=== PATIENT | female | born 1940 | race Caucasian/White ===

== ENCOUNTER → 2017-03-14 | Outpatient (CLI) | payer OTHER ==
--- NOTE | 2017-03-14 12:49 | PCVCIMAG ---
APPROVED REPORT Study performed: 03/14/2017 10:02:59 EXAM: Comprehensive 2D, Doppler, and color-flow Echocardiogram Patient Location: Echo lab Status: routine Other Information Study Quality: Adequate Risk Factors: Cardiac Risk Factors: HTN, Hyperlipidemia Indications Aortic Stenosis 2D Dimensions LVEF(%): 66.98 (>50%) IVSd: 12.58 (7-11mm)LVOT Diam: 18.98 (18-24mm) LVDd: 35.94 mm PWd: 13.15 (7-11mm)Ascending Ao: 30.98 (22-36mm) LVDs: 22.88 (25-40mm) Left Atrium: 38.04 (27-40mm) Aortic Root: 30.28 mm LV Single Plane 4CH: 60.11 % LV Single Plane 2CH: 53.52 %Roque's LVEF: 56.81 % Biplane EF: 57.6 % Volumes Left Atrial Volume (Systole) Single Plane 4CH: 44.24 mLSingle Plane 2CH: 61.37 mL LA ESV Index: 34.00 mL/m2 Aortic Valve AoV Peak Glenn.: 3.82 m/s AO Peak Gr.: 58.45 mmHgLVOT Max P.71 mmHg AO Mean Gr.: 30.68 mmHgLVOT Mean P.36 mmHg AO V2 Mean: 2.64 m/sLVOT Max V: 1.08 m/s AO V2 VTI: 96.71 cm SHILO (VTI): 0.74 [id number] V1 VTI: 25.43 cm SHILO Vmax: 0.80 cm2 Mitral Valve E/A Ratio: 0.9 MV Decel. Time: 254.96 ms MV E Max Glenn.: 1.01 m/s MV A Glenn.: 1.16 m/s MV PHT: 73.94 ms IVRT: 103.81 ms Pulmonary Valve PV Peak Glenn.: 0.87 m/sPV Peak Gr.: 3.06 mmHg Pulmonary Vein P Vein S: 0.31 m/sP Vein A: 0.30 m/s P Vein D: 0.45 m/sP Vein A Dur.: 134.9 msec P Vein S/D Ratio: 0.69 Tricuspid Valve TR Peak Glenn.: 2.20 m/s TR Peak Gr.: 19.40 mmHg Left Ventricle The left ventricle is normal size. There is normal LV segmental wall motion. Mild concentric left ventricular hypertrophy. Left ventricular systolic function is normal. The left ventricular ejection fraction is within the normal range. LVEF is 55-60%. Grade I - abnormal relaxation pattern. Right Ventricle The right ventricle is normal size. The right ventricular systolic function is normal. Atria The left atrium size is normal. The right atrium size is normal. Aortic Valve The aortic valve is moderately to severely calcified. The aortic valve is trileaflet. Trace aortic regurgitation. There is moderate to severe valvular aortic stenosis. Calculated aortic valve area is 0.8 cm2 with maximum pressure gradient of 58 mmHg and mean pressure gradient of 31 mmHg. Mitral Valve The mitral valve is normal in structure. Trace mitral regurgitation. No evidence of mitral valve stenosis. Tricuspid Valve The tricuspid valve is normal in structure. Trace to mild tricuspid regurgitation with PAP of 26 mmHg. Pulmonic Valve The pulmonary valve is normal in structure. There is no pulmonic valvular regurgitation. Great Vessels The aortic root is normal in size. IVC is normal in size and collapses with >50% inspiration Pericardium There is no pericardial effusion. <Conclusion> The left ventricle is normal size. Mild concentric left ventricular hypertrophy. Left ventricular systolic function is normal. The right ventricle is normal size. The left atrium size is normal. There is moderate to severe valvular aortic stenosis. Calculated aortic valve area is 0.8 cm2 with maximum pressure gradient of 58 mmHg and mean pressure gradient of 31 mmHg. Trace mitral regurgitation. Trace to mild tricuspid regurgitation with PAP of 26 mmHg.
== END | disposition home or self-care (01) ==
LOC: PCVCIMAG 09:57
PROVIDERS: ATTEND Internal Medicine Cardiovascular Disease
DX: I10 Essential (primary) hypertension (principal); E78.5 Hyperlipidemia, unspecified; I08.3 Combined rheumatic disorders of mitral, aortic and tricuspid valves; E78.00 Pure hypercholesterolemia, unspecified
CPT/HCPCS: 93306

== ENCOUNTER → 2017-05-05 | Outpatient (CLI) | payer OTHER | END | disposition home or self-care (01) | LOC: PCVCCLINIC 14:10 | PROVIDERS: ATTEND Internal Medicine Cardiovascular Disease | DX: I35.0 Nonrheumatic aortic (valve) stenosis (principal); I10 Essential (primary) hypertension; E78.00 Pure hypercholesterolemia, unspecified; Z79.82 Long term (current) use of aspirin | CPT/HCPCS: 93005; G0463 ==

== ENCOUNTER → 2017-11-03 | Outpatient (CLI) | payer OTHER | END | disposition home or self-care (01) | LOC: PCVCIMAG 08:40 | DX: I08.2 Rheumatic disorders of both aortic and tricuspid valves (principal); I10 Essential (primary) hypertension; E78.00 Pure hypercholesterolemia, unspecified; R94.31 Abnormal electrocardiogram [ECG] [EKG]; Z79.82 Long term (current) use of aspirin | CPT/HCPCS: 93005; 93306; G0463 ==

== ENCOUNTER → 2018-05-08 | Outpatient (CLI) | payer OTHER ==
--- NOTE | 2018-05-08 10:40 | PCVCIMAG ---
APPROVED REPORT Study performed: 05/08/2018 09:09:30 EXAM: Comprehensive 2D, Doppler, and color-flow Echocardiogram Patient Location: Echo lab Status: routine BSA: 1.62 HR: 74 bpmBP: 140/70 mmHg Rhythm: NSR Other Information Study Quality: Good Risk Factors: Cardiac Risk Factors: HTN, Hyperlipidemia Indications Aortic Stenosis 2D Dimensions LVEF(%): 71.86 (>50%) IVSd: 13.80 (7-11mm)LVOT Diam: 19.63 (18-24mm) LVDd: 33.26 mm PWd: 11.19 (7-11mm)Ascending Ao: 30.58 (22-36mm) LVDs: 19.95 (25-40mm) Left Atrium: 37.61 (27-40mm) Aortic Root: 24.41 mm LV Single Plane 4CH: 64.94 % LV Single Plane 2CH: 56.46 %Roque's LVEF: 60.70 % Biplane EF: 60.1 % Volumes Left Atrial Volume (Systole) Single Plane 4CH: 55.54 mLSingle Plane 2CH: 45.55 mL LA ESV Index: 35.00 mL/m2 Aortic Valve AoV Peak Glenn.: 4.16 m/s AO Peak Gr.: 69.28 mmHgLVOT Max P.02 mmHg AO Mean Gr.: 38.69 mmHgLVOT Mean P.08 mmHg AO V2 Mean: 2.95 m/sLVOT Max V: 1.12 m/s AO V2 VTI: 92.68 cmLVOT Mean V: 0.83 m/s SHILO (VTI): 0.94 [id number] V1 VTI: 28.69 cm SHILO Vmax: 0.81 cm2 SV (LVOT): 86.80 mL Mitral Valve MV Peak Gr.: 9.79 mmHg MV Mean Gr.: 4.05 mmHgE/A Ratio: 1.0 MV Decel. Time: 202.76 ms MV E Max Glenn.: 1.35 m/s MV A Glenn.: 1.41 m/s MV Max Glenn.: 1.56 m/s MV Mean Glenn.: 0.95 m/s MV VTI: 378.02 mm MVA VTI: 229.62 mm2 TDI E/Lateral E': 19.29E/Medial E': 22.50 Medial E' Glenn.: 0.06 m/s Lateral E' Glenn.: 0.07 m/s Pulmonary Valve PV Peak Gr.: 3.01 mmHg Pulmonary Vein P Vein S: 0.62 m/sP Vein A: 0.26 m/s P Vein D: 0.30 m/sP Vein A Dur.: 76.1 msec P Vein S/D Ratio: 2.07 Tricuspid Valve TR Peak Glenn.: 2.90 m/s TR Peak Gr.: 33.74 mmHg Left Ventricle The left ventricle is normal size. There is normal LV segmental wall motion. Mild concentric left ventricular hypertrophy. Left ventricular systolic function is normal. The left ventricular ejection fraction is within the normal range. LVEF is 60-65%. Grade I - abnormal relaxation pattern. Right Ventricle The right ventricle is normal size. The right ventricular systolic function is normal. Atria Left atrium is mildly dilated. The right atrium size is normal. Aortic Valve Aortic valve leaflets are moderately thickened. No aortic regurgitation is present. Severe aortic stenosis. Aortic Valve Area is 0.8cm2. Peak gradient is 69mmhg. Mean gradient is 39mmhg. Mitral Valve Moderate mitral annular calcification. There is no mitral valve regurgitation noted. No evidence of mitral valve stenosis. Tricuspid Valve The tricuspid valve is normal in structure. Trace tricuspid regurgitation. Pulmonary artery ppressure is 41mmhg. Pulmonic Valve The pulmonary valve is normal in structure. There is no pulmonic valvular regurgitation. Great Vessels The aortic root is normal in size. IVC is normal in size and collapses with >50% inspiration Pericardium There is no pericardial effusion. <Conclusion> The left ventricle is normal size. Mild concentric left ventricular hypertrophy. Left ventricular systolic function is normal. Grade I - abnormal relaxation pattern. The right ventricle is normal size. Left atrium is mildly dilated. Severe aortic stenosis. Aortic Valve Area is 0.8cm2. Peak gradient is 69mmhg. Mean gradient is 39mmhg. Moderate mitral annular calcification. There is no mitral valve regurgitation noted.
== END | disposition home or self-care (01) ==
LOC: PCVCIMAG 10:42
PROVIDERS: ATTEND Internal Medicine Cardiovascular Disease
DX: I10 Essential (primary) hypertension (principal); E78.5 Hyperlipidemia, unspecified; I35.0 Nonrheumatic aortic (valve) stenosis
CPT/HCPCS: 93306

== ENCOUNTER → 2018-11-14 | Outpatient (CLI) | payer OTHER ==
--- NOTE | 2018-11-14 11:52 | PCVCIMAG ---
APPROVED REPORT Study performed: 11/14/2018 08:47:09 EXAM: Comprehensive 2D, Doppler, and color-flow Echocardiogram Patient Location: Echo lab Status: routine BSA: 1.62 HR: 67 bpmBP: 148/72 mmHg Rhythm: NSR Other Information Study Quality: Good Risk Factors: Cardiac Risk Factors: Hyperlipidemia, HTN Indications Aortic Valve Disease Syncope Aortic Stenosis 2D Dimensions IVSd: 12.18 (7-11mm)LVOT Diam: 19.90 (18-24mm) LVDd: 30.65 mm PWd: 13.43 (7-11mm)Ascending Ao: 28.93 (22-36mm) LVDs: 19.18 (25-40mm) Left Atrium: 33.46 (27-40mm) Aortic Root: 27.92 mm LV Single Plane 4CH: 68.42 % LV Single Plane 2CH: 74.92 % Biplane EF: 72.8 % Volumes Left Atrial Volume (Systole) Single Plane 4CH: 67.07 mLSingle Plane 2CH: 48.65 mL Biplane LA Volume: 58.00 mLLA ESV Index: 36.00 mL/m2 Aortic Valve AoV Peak Glenn.: 3.96 m/s AO Peak Gr.: 64.04 mmHgLVOT Max P.46 mmHg AO Mean Gr.: 37.85 mmHgLVOT Mean P.08 mmHg AO V2 Mean: 2.80 m/sLVOT Max V: 1.05 m/s AO V2 VTI: 94.32 cmLVOT Mean V: 0.85 m/s SHILO (VTI): 0.93 [id number] V1 VTI: 28.35 cm SHILO Vmax: 0.82 cm2 SV (LVOT): 88.10 mL Mitral Valve E/A Ratio: 0.8 MV Decel. Time: 255.90 ms MV E Max Glenn.: 1.04 m/s MV A Glenn.: 1.28 m/s IVRT: 58.82 ms TDI E/Lateral E': 14.86E/Medial E': 17.33 Medial E' Glenn.: 0.06 m/s Lateral E' Glenn.: 0.07 m/s Pulmonary Valve PV Peak Glenn.: 0.90 m/sPV Peak Gr.: 3.28 mmHg Pulmonary Vein P Vein S: 0.56 m/sP Vein A: 0.27 m/s P Vein D: 0.28 m/sP Vein A Dur.: 79.6 msec P Vein S/D Ratio: 2.00 Tricuspid Valve TR Peak Glenn.: 2.69 m/s TR Peak Gr.: 29.01 mmHg TV Vmax: 0.86 m/sPA Pressure: 36.00 mmHg Left Ventricle The left ventricle is normal size. There is normal LV segmental wall motion. Mild concentric left ventricular hypertrophy. Left ventricular systolic function is normal. The left ventricular ejection fraction is within the normal range. LVEF is 65-70%. Grade I - abnormal relaxation pattern. Right Ventricle The right ventricle is normal size. The right ventricular systolic function is normal. Atria Left atrium is mildly dilated. Right atrium is mildly dilated. Aortic Valve Aortic valve is calcified. No aortic regurgitation is present. Moderately severe aortic stenosis. Highest mean aortic valve gradient is -35 mmHg. Mitral Valve Mild mitral annular calcification. The mitral valve is mildly thickened but opens well. Mild mitral regurgitation. No evidence of mitral valve stenosis. Tricuspid Valve The tricuspid valve is normal in structure. Mild tricuspid regurgitation with a PA pressure of 36 mmHg. Pulmonic Valve The pulmonary valve is normal in structure. Trace pulmonic regurgitation. Great Vessels The aortic root is normal in size. The ascending aorta is normal in size. Aortic arch is normal in caliber. IVC is normal in size and collapses >50% with inspiration. Pericardium There is no pericardial effusion. There is no pleural effusion. <Conclusion> The left ventricle is normal size. Mild concentric left ventricular hypertrophy. Left ventricular systolic function is normal. Grade I - abnormal relaxation pattern. The right ventricle is normal size. Left atrium is mildly dilated. Right atrium is mildly dilated. Moderately severe aortic stenosis. Mild mitral annular calcification. Mild mitral regurgitation. Mild tricuspid regurgitation with a PA pressure of 36 mmHg.
== END | disposition home or self-care (01) ==
LOC: PCVCIMAG 13:10
PROVIDERS: ATTEND Internal Medicine Cardiovascular Disease
DX: I08.3 Combined rheumatic disorders of mitral, aortic and tricuspid valves (principal); I11.9 Hypertensive heart disease without heart failure; R55 Syncope and collapse
CPT/HCPCS: 93306

== ENCOUNTER → 2019-05-22 | Outpatient (CLI) | payer OTHER ==
--- NOTE | 2019-05-23 09:43 | PCVCIMAG ---
APPROVED REPORT Study performed: 05/22/2019 13:26:02 EXAM: Comprehensive 2D, Doppler, and color-flow Echocardiogram Patient Location: Echo lab Room #: 2Status: routine BSA: 1.62 HR: 76 bpmBP: 140/68 mmHg Rhythm: NSR Other Information Study Quality: Good Risk Factors: Cardiac Risk Factors: HTN, Hyperlipidemia Indications Aortic Valve Disease CAD Hypertension/HDD 2D Dimensions IVSd: 11.00 (7-11mm)LVOT Diam: 20.09 (18-24mm) LVDd: 32.19 mm PWd: 11.00 (7-11mm)Ascending Ao: 30.17 (22-36mm) LVDs: 15.96 (25-40mm) Left Atrium: 38.07 (27-40mm) Aortic Root: 21.04 mm LV Single Plane 4CH: 54.61 % LV Single Plane 2CH: 63.51 % Biplane EF: 60.5 % Volumes Left Atrial Volume (Systole) Single Plane 4CH: 47.26 mLSingle Plane 2CH: 64.80 mL Biplane LA Volume: 56.00 mLLA ESV Index: 34.00 mL/m2 Aortic Valve AoV Peak Glenn.: 3.76 m/s AO Peak Gr.: 61.53 mmHgLVOT Max P.33 mmHg AO Mean Gr.: 37.91 mmHgLVOT Mean P.61 mmHg AO V2 Mean: 2.92 m/sLVOT Max V: 1.04 m/s AO V2 VTI: 87.43 cmLVOT Mean V: 0.76 m/s SHILO (VTI): 0.97 [id number] V1 VTI: 26.90 cm SHILO Vmax: 0.88 cm2 SV (LVOT): 85.19 mL Mitral Valve E/A Ratio: 0.7 MV Decel. Time: 288.74 ms MV E Max Glenn.: 0.99 m/s MV A Glenn.: 1.44 m/s MV VTI: 300.98 mm MVA VTI: 283.05 mm2 MV PHT: 91.91 ms MVA (PHT): 2.39 cm2 IVRT: 72.66 ms TDI E/Lateral E': 19.80E/Medial E': 19.80 Medial E' Glenn.: 0.05 m/s Lateral E' Glenn.: 0.05 m/s Pulmonary Valve PV Peak Glenn.: 0.89 m/sPV Peak Gr.: 3.15 mmHg Pulmonary Vein P Vein S: 0.52 m/sP Vein A: 0.26 m/s P Vein D: 0.25 m/sP Vein A Dur.: 83.0 msec P Vein S/D Ratio: 2.08 Tricuspid Valve TV Vmax: 0.61 m/s Left Ventricle The left ventricle is normal size. There is normal LV segmental wall motion. Mild concentric left ventricular hypertrophy. Intra-cavitary gradient is present. Left ventricular systolic function is normal. The left ventricular ejection fraction is within the normal range. LVEF is 60%. Moderate diastolic dysfunction is present (pseudonormal filling). Right Ventricle The right ventricle is normal size. The right ventricular systolic function is normal. Atria Left atrium is borderline dilated. The right atrium size is normal. Aortic Valve Severe aortic valve sclerosis. Aortic valve is probably trileaflet. No aortic regurgitation is present. Moderate to severe aortic stenosis. Highest mean aortic valve gradient is 38_mmHg. Peak aortic valve gradient is 57_mmHg. Calculated SHILO by the continuity equation is 0.9-1.0_cm2. Mitral Valve Mitral valve leaflets are moderately thickened. Mitral annulus is moderately calcified. There is no mitral valve regurgitation noted. Tricuspid Valve The tricuspid valve is normal in structure. There is no tricuspid valve regurgitation noted. Pulmonic Valve The pulmonary valve is normal in structure. There is no pulmonic valvular regurgitation. Great Vessels The aortic root is normal in size. The ascending aorta is normal in size. IVC is normal in size and collapses >50% with inspiration. Pericardium There is no pericardial effusion. There is no pleural effusion. <Conclusion> The left ventricle is normal size. Mild concentric left ventricular hypertrophy. Left ventricular systolic function is normal. The right ventricle is normal size. Left atrium is borderline dilated. Moderate to severe aortic stenosis. Highest mean aortic valve gradient is 38_mmHg. Mitral valve leaflets are moderately thickened. Mitral annulus is moderately calcified. There is no tricuspid valve regurgitation noted.
== END | disposition home or self-care (01) ==
LOC: PCVCIMAG 13:12
PROVIDERS: ATTEND Internal Medicine Cardiovascular Disease
DX: I35.0 Nonrheumatic aortic (valve) stenosis (principal); I11.9 Hypertensive heart disease without heart failure; E78.00 Pure hypercholesterolemia, unspecified; I25.10 Atherosclerotic heart disease of native coronary artery without angina pectoris
CPT/HCPCS: 93306